=== PATIENT | female | born 1930 | race Caucasian/White ===

== ENCOUNTER 2017-03-16 13:23 | Inpatient (IN) | payer MEDICARE, OTHER ==
--- NOTE | ~2017-03-16 | IDS ---
Interim Discharge Summary [facility] [address] [place]. [address] NAME: NICOLAS TRUJILLO : 31 STATUS : ADM IN [facility]#: [id number] AGE: 87 ADM/REG DATE : 03/16/17 MR#: [id number] REPORT SERV DATE: 03/19/17 DICTATED BY: JIA KATZ DATE: 03/19/17 REPORT STATUS : Draft TRANSCRIBED BY: MODL DATE: 03/19/17 ADMISSION DATE: 03/16/2017 DISCHARGE DATE: CURRENT HOSPITAL DIAGNOSES: 1. Acute renal failure. 2. History of hypertension, currently off her antihypertensives. 3. History of recent ejq-YZ-blaupnavu myocardial infarction with stent placement. Currently on antiplatelet therapy. 4. History of diet-controlled diabetes. CONSULTATIONS: Nephrology. PROCEDURES: 1. Echocardiogram, currently pending. 2. Renal ultrasound showing a 5 mm stone in the lower pole of the left kidney, mild cortical thinning consistent with aging, left extrarenal pelvis dilated without caliectasis. CURRENT PHYSICAL FINDINGS AND HISTORY OF PRESENT ILLNESS: Please see the initial dictated H and P by myself. In brief, the patient is an 87-year-old female, who was referred by Dr. Oh for increasing creatinine post cath approximately two months ago for cardiac stent. LABORATORY DATA: Lab work showed initial creatinine of 5.77 on 03/16/2017. Subsequently, per day 5.19, 3.55, and 2.74, no associated hyperkalemia. A1c was 5.9, no leukocytosis, mild anemia, approximately 10 and 30 on her hemoglobin and hematocrit. Urinalysis was positive. The patient has been asymptomatic. Culture showed probable contamination. HOSPITAL COURSE: Vital signs at the time of admission; BP was 116/50. The patient had intermittent high numbers in the 160s, but overall it has been averaging approximately to 140s, systolic, no fever during this hospital stay. The patient was admitted. Her ZACHARY inhibitor and diuretic were held. IV fluids were given. Obstruction was ruled out. Nephrology was consulted, given the elevation in her numbers in her creatinine. Urinalysis with culture was checked, not treated as the patient is currently asymptomatic. She was having no difficulty with volume overload. She was having no cardiac issues or chest pain. CURRENT PLAN AND DISPOSITION: The patient is off IV fluids. Awaiting echocardiogram. Creatinine continues to improve. Mild hypertension, off her antihypertensives, observing. We will repeat UA to rule out any issues with the UTI. Expect disposition to home soon. TLF/JOSE Interim Discharge Summary [place] [address] [place]. [address] NAME: NICOLAS TRUJILLO : 31 STATUS : ADM IN PAT#: [id number] AGE: 87 ADM/REG DATE : 03/16/17 MR#: [id number] REPORT SERV DATE: 03/19/17 DICTATED BY: JIA KATZ DATE: 03/19/17 REPORT STATUS : Draft TRANSCRIBED BY: JOSE DATE: 03/19/17 Jia Katz M.D. / [id number] CC: Alton Pathak M.D.
--- NOTE | ~2017-03-16 | HP ---
History And Physical [place] [id number] [facility] [place]. [address] NAME: NICOLAS TRUJILLO : 31 STATUS : ADM IN PAT#: [id number] AGE: 87 ADM/REG DATE : 03/16/17 MR#: [id number] REPORT SERV DATE: 03/16/17 DICTATED BY: JIA KATZ DATE: 03/16/17 REPORT STATUS : Draft TRANSCRIBED BY: MODL DATE: 03/16/17 DATE OF ADMISSION: 03/16/2017 CHIEF COMPLAINT: Increasing renal insufficiency. HISTORY OF PRESENT ILLNESS: The patient is an 87-year-old female. She has a past medical history significant for hypertension, dependent edema, diabetes, and glaucoma. She presents today as a direct admission from Dr. Oh's office. The patient had a recent hospitalization about two months ago at [facility] for a non-ST [place]. She is uncertain how high her troponin got or whether she was diagnosed with any significant heart failure. She was treated with a stent placement, and by her description, she states that she underwent cardiac catheterization on Sunday and then stent placement the following day. [facility] elected to hydrate her in between the procedures. She seems to have perhaps some mild underlying renal insufficiency. Dr. Oh's records sent from her with creatinines going back to 04/2015 seemed to indicate a 1.2 to 1.3 creatinine. Prior to all of this, she had been on Bumex and an ZACHARY inhibitor. She does not believe [facility] changed any of those doses. When she saw Dr. Oh for a post-hospital followup, her creatinine was slightly higher. He advised her to decrease the ZACHARY inhibitor and decrease the diuretic. I believe she also had a Mobic prescription, which he recommended she discontinue. There may have been another creatinine check after that appointment, but when she went back most recently for a followup creatinine, it had jumped to 5.2. It appears before 01/27/2017, she was 1.5. Subsequent numbers were 3.7, 2.9, and then 5.2. The patient states that she noticed some concentrated urine and some decreased output, worse over the past couple of days. She states her urine was "slow," but she was not having trouble passing it. She did not really feel like her edema had changed. She had some slight shortness of breath after the heart attack. She has not really felt like that has worsened, perhaps with some kind of cardiac arrhythmia that might have even improved some. She is admitted today for further delineation of the etiology of her renal failure. PAST MEDICAL HISTORY: As covered above. PAST SURGICAL HISTORY: She has had some orthopedic surgeries. She had the heart catheterization and the recent stent placement. CURRENT MEDICATIONS: Allopurinol 200 a day, aspirin 81, Lipitor 80, Lumigan eyedrops, Alphagan eyedrops, Bumex 1 mg daily, Caltrate 600 daily, D3 10,000, Restasis ophthalmic, Atrovent nasal, lisinopril 20, Mag oxide 400, potassium 10, Brilinta 90 b.i.d., over-the- counter vitamins. ALLERGIES: MORPHINE, CODEINE, PENICILLIN, AND SULFA. FAMILY HISTORY: Both parents ; father with cancer and mother with a CVA. SOCIAL HISTORY: Remote smoker. No EtOH. REVIEW OF SYSTEMS: History And Physical [address] [address] NAME: NICOLAS TRUJILLO : 31 STATUS : ADM IN [facility]#: [id number] AGE: 87 ADM/REG DATE : 03/16/17 MR#: [id number] REPORT SERV DATE: 03/16/17 DICTATED BY: JIA KATZ DATE: 03/16/17 REPORT STATUS : Draft TRANSCRIBED BY: JOSE DATE: 03/16/17 HEENT: No complaints. CARDIOVASCULAR: She has not had chest pain or palpitations since her cardiac intervention. PULMONARY: Some slight exertional shortness of breath. No cough, hemoptysis, or purulent sputum. GASTROINTESTINAL: No nausea or vomiting. GENITOURINARY: As covered in HPI. NEUROMUSCULOSKELETAL: Chronic orthopedic problems. Otherwise, 10-point review of systems is negative. PHYSICAL EXAMINATION: VITAL SIGNS: Currently pending. GENERAL: She is awake, alert, and oriented. HEENT: Normocephalic, atraumatic. Sclerae are nonicteric. NECK: Supple. HEART: Regular rate and rhythm. LUNGS: Show some mild rales in the bases. ABDOMEN: Nontender, nondistended. EXTREMITIES: Trace to 1+ edema. LABORATORY DATA: As forwarded, dated 03/15/2017: Sodium 142, potassium 4.7, chloride 105, CO2 of 20, BUN and creatinine were 70 and 5.2 with a glucose of 112. ASSESSMENT: Acute renal failure. Etiologies to be recent heart catheterization; medications including diuretic, angiotensin-converting enzyme inhibitor, and anti-inflammatory; progressive underlying kidney disease, all possibilities. PLAN: 1. The patient has been admitted. 2. Gentle rehydration, as I do not know her underlying EF. 3. We will hold her ZACHARY and diuretics. 4. Nephrology consult. 5. Records request from [facility]. CHANO/JOSE Jia Katz M.D. / [id number] CC: Tunde Oh M.D.
--- NOTE | ~2017-03-16 | CN ---
Consultation Report [facility] [address] [place]. [address] NAME: NICOLAS PHILLIPS : 31 STATUS : ADM IN PAT#: [id number] AGE: 87 ADM/REG DATE : 03/16/17 MR#: [id number] REPORT SERV DATE: 03/16/17 DICTATED BY: DATE: REPORT STATUS : Draft TRANSCRIBED BY: MODL DATE: 03/16/17 DATE OF CONSULTATION: REASON FOR CONSULTATION: Acute kidney injury. HISTORY OF PRESENT ILLNESS: Ms. Phillips is an 87-year-old white female, who denies any history of kidney disease in the past. However, Dr. Oh has sent some records from his office and it looks as though she did have some mild CKD with baseline creatinine 1.3. She does have type 2 diabetes. It has been diet controlled for over 10 years, but no known retinopathy. Most recently, in 01/2016, she had an SD and heart catheterization with stenting at [facility]. She went for her followup appointment with Dr. Oh and was found to have an elevated creatinine. He stopped her Mobic and decreased her lisinopril. On recheck, she has had it rechecked twice in the office, it was 3.7, then 2.9, and yesterday at the office, it was up to 5.2. She does have lower extremity edema, chronic, no change. She has noted that her blood pressure has been in the 90s, which is different over the last month or so. Over the last two to three days, she has had a decrease in urination without burning or blood. She is experiencing no shortness of breath, chest pain, tightness, or pressure. No unusual rashes or skin lesions. No recent antibiotics. The only new medications after her SD were aspirin, Brilinta, and statin therapy. PAST MEDICAL HISTORY: Diabetes, SD, coronary artery disease, stent, hyperlipidemia, hypertension, reflux, type 2 diabetes diet controlled, osteoarthritis, glaucoma, total knee replacement, and cholecystectomy. ALLERGIES: MORPHINE, PENICILLIN, CODEINE, AND SULFA. MEDICATIONS AT HOME: Allopurinol, aspirin, Lipitor, Bumex, Caltrate, D3, Atrovent, lisinopril, magnesium oxide, potassium, Brilinta. FAMILY MEDICAL HISTORY: Negative for any kidney disease. SOCIAL HISTORY: She lives with her daughter. Distant history of tobacco use, quit in 80s. No alcohol or illicit drug use. REVIEW OF SYSTEMS: A 12-point review of systems obtained, negative with the exception of that in HPI. PHYSICAL EXAMINATION: VITAL SIGNS: Blood pressure 111/54, temp 97.9, heart rate 67, respiratory rate 16, O2 saturation 96% on room air. GENERAL: This is a pleasant, cooperative white female. She is awake, alert, and oriented x3, in no acute distress. Answers questions appropriately. HEENT: Normocephalic and atraumatic. Conjunctivae clear. Sclerae are anicteric. Oral mucosa is dry. Consultation Report [facility] [address] [facility] [place]. [address] NAME: NICOLAS PHILLIPS : 31 STATUS : ADM IN [facility]#: [id number] AGE: 87 ADM/REG DATE : 03/16/17 MR#: [id number] REPORT SERV DATE: 03/16/17 DICTATED BY: DATE: REPORT STATUS : Draft TRANSCRIBED BY: MODSesar DATE: 03/16/17 NECK: Supple. Carotids are brisk. Neck veins flat. No lymphadenopathy. LUNGS: Respirations even and unlabored. Breath sounds clear to auscultation. HEART: Rate is regular. I did not hear any murmur, rub, or gallop. ABDOMEN: Soft and nontender. I did not hear any bruits. No masses. No hepatosplenomegaly. Bowel sounds active. No CVA tenderness. BACK: Within normal limits. EXTREMITIES: Without any significant edema. SKIN: Warm, dry, and intact. No unusual rashes or skin lesions. NEURO: No focal deficits. Mood and affect, pleasant and appropriate. LABORATORY DATA: None available from [facility]; however, labs from Dr. Oh's office yesterday, calcium was 9.2, creatinine 5.2, BUN of 70. Sodium 142, potassium 4.7. IMPRESSION: 1. Acute kidney injury. 2. Chronic kidney disease stage 2. 3. Coronary artery disease, status post recent myocardial infarction with stent. 4. Hypertension. 5. Type 2 diabetes. 6. Osteoarthritis. 7. Hyperlipidemia. 8. Nausea. PLAN: She already has renal ultrasound ordered. We will give some gentle hydration as I do not know what her EF is. Follow I's and O's and labs. Check CPK. Check urine studies. Try and obtain records from [facility]. Hold lisinopril. Further orders and recommendations pending the above results. BRIE/MODL NITHYA Cobb / [id number] CC: Alton Pathak M.D.
--- NOTE | ~2017-03-16 | DS ---
Discharge Summary [place] [id number] [facility] [place]. [address] NAME: NICOLAS PHILLIPS : 31 STATUS : DIS IN PAT#: [id number] AGE: 87 ADM/REG DATE : 03/16/17 MR#: [id number] REPORT SERV DATE: 03/22/17 DICTATED BY: SHANNAN JAY DATE: 03/21/17 REPORT STATUS : Draft TRANSCRIBED BY: MODL DATE: 03/21/17 ADMISSION DATE: 03/16/2017 DISCHARGE DATE: 03/21/2017 DISCHARGE DIAGNOSES: 1. Acute kidney injury secondary to acute tubular necrosis. 2. Diabetes type 2. 3. Metabolic acidosis. 4. Coronary artery disease. 5. Hypertension. 6. History of NSTEMI, on antiplatelet therapy. CONSULTATIONS: Nephrology. PROCEDURES: Echocardiogram with EF of 58% mild diastolic dysfunction and right ventricular systolic function, intact aortic sclerosis with mild stenosis. Discussed with the patient. Renal ultrasound showing 5 mm stone left lower pole, mild cortical thickening with aging, left extrarenal pelvis dilated without caliectasis. DISCHARGE MEDICATIONS: 1. Aspirin 81 mg one tab p.o. daily. 2. Atorvastatin reduced to half dose at bedtime 40 mg one tab p.o. daily. 3. Alphagan 1 drop ophthalmic daily. 4. Coreg 3.125 mg one tab p.o. b.i.d. 5. Lumigan droplet tab at bedtime home dose. 6. Brilinta 90 mg one tab p.o. b.i.d. 7. Hydralazine 25 mg one tab p.o. b.i.d. 8. Vitamin D 3 one cap p.o. weekly on Mondays. 9. Zestril, allopurinol, Bumex, and potassium supplements all held. 10.Magnesium oxide 400 mg one tab p.o. daily. 11.Icaps, Caltrate carbonate 600 mg one tab p.o. daily. 12.Atrovent spray nasally as needed for nasal drip. 13.Restasis droplet p.r.n. dry eyes. 14.Sodium bicarb 200 mg p.o. daily. DISCHARGE DISPOSITION: Home with family. FOLLOWUP: With PCP for BMP, CBC, blood pressure approximately 7 days and follow up with Renal in one week. Follow up 1-2 weeks for labs as ordered. HOSPITAL COURSE: Please see H and P for complete details of HPI and interim summary by Dr. Erick Odom. INTERIM COURSE: Briefly, Ms. Phillips is a very pleasant 87-year-old, female, who presents after having elevated creatinine post catheterization 2 months ago for cardiac stent. Creatinine was up to 5.77. On admission, did have improvement without significant Discharge Summary [address] [address] NAME: NICOLAS PHILLIPS : 31 STATUS : DIS IN PAT#: [id number] AGE: 87 ADM/REG DATE : 03/16/17 MR#: [id number] REPORT SERV DATE: 03/22/17 DICTATED BY: SHANNAN JAY DATE: 03/21/17 REPORT STATUS : Draft TRANSCRIBED BY: JOSE DATE: 03/21/17 hyperkalemia. A1c was 5.9. The patient did have mild anemia. The patient was also having adjustments with her blood pressure including increase in her ZACHARY inhibitor. The patient did have nephrotoxins held with ZACHARY inhibitor, diuretic. No obstruction was appreciated. The patient clinically was asymptomatic, feeling well, not volume overloaded. The patient did have repeat UA which only showed trace leukocyte esterase and WBC of 6. No bacteria and no acute leukocytosis. On day of discharge, creatinine had actually improved to 2.16, although the patient was mildly acidotic. This was discussed with Renal Team who believed this was likely secondary to medical renal disease. Replacement was started with sodium bicarb and to be followed up in 1 week. The patient felt clinically safe and improved to return home, was continued on home medications minus ZACHARY inhibitor and diuretic, but was continued on aspirin, Brilinta, decreased dose of atorvastatin, was started on Coreg, low dose hydralazine, both of which were tolerated while inpatient as the patient did have mild increases in blood pressure while inpatient and blood pressure seemed to be more optimized while on these medications and can continued to be titrated in the outpatient setting. The patient understood and had appropriate questioning throughout hospital course and understands importance for close followup. Thank you, Dr. Oh, for allowing us to assist in the care of this wonderful patient. DICTATED BY: MD YAQUELIN Lu/JOSE Shannan Jay MD / [id number] CC: MD Tunde Lu M.D.
[~2017-03-16 13:23] MED LIST: ALPHAGAN P0.1 % OPH; AMB10 PO; BETIMOL0.25 % OPH; CALTRA600D PO; DARVOCET-N50 MG PO; EYE CAPS VITAMIN PO; FOSAMAX70 MG PO; GLUCPH PO; HAIR,SKIN,NAILS; I-CAP VITAMIN PO; KLOR-CON 1010 MEQ PO; LUMIGAN OPH; LUMIGAN2.5 ML OPH; MAGOX4 PO; MOBIC15 MG PO; NORCO1 TA1 PO; NORV10 PO; PRILO PO; PRIN20 PO; PRINZIDE1 TA1 PO; RANITIDINE300 MG PO; RESTASIS OPH; TEARS PLUS OP; ULTRAM50 PO; ZANAFLEX 4 MG TA4 MG PO; ZESTORETIC PO; ZOCOR40 PO; [UNRECOGNIZED DRUG - OTHER] PO
[2017-03-16] MEDS ORDERED: Z100 PO (14:13)
[2017-03-16] MEDS ORDERED: ZESTRIL20 MG PO (14:13)
[2017-03-16] MEDS ORDERED: BUM1 PO (14:14)
[2017-03-16] MEDS ORDERED: MICRO-K10 MEQ PO (14:15)
[2017-03-16] MEDS ORDERED: MAXIMUM D3 PO (14:20)
[2017-03-16] MEDS ORDERED: HALF81 PO (14:21)
[2017-03-16] MEDS ORDERED: MAGOX4 PO (14:21)
[2017-03-16] MEDS ORDERED: ICAPS AREDS SO1 EACH PO ×2 (14:29→14:30)
[2017-03-16] MEDS ORDERED: BRILINTA90 MG PO (14:29)
[2017-03-16] MEDS ORDERED: LIPITOR80 MG PO (14:29)
[2017-03-16] MEDS ORDERED: CALTRAT600 PO (14:31)
[2017-03-16] MEDS ORDERED: [UNRECOGNIZED DRUG - OTHER] PO (14:32)
[2017-03-16] MEDS ORDERED: ATRONASAL3 NAS (14:34)
[2017-03-16] MEDS ORDERED: ALPHAGAN P0.1 % OPH (14:35)
[2017-03-16] MEDS ORDERED: RESTASIS OPH (14:36)
[2017-03-16] MEDS ORDERED: LUMIGAN2.5 ML OPH (14:37)
[2017-03-16 17:09] LABS: A/G RATIO 0.9 (0.7-1.9); ALBUMIN 3.4 G/DL (3.5-5.0); CHLORIDE, SERUM 107 MMOL/L (96-112); FREE T4 1.12 NG/DL (0.76-1.46); GLOBULIN 3.9 G/DL (2.5-4.1); SGOT(AST) 24 U/L (5-40); SGPT(ALT) 23 U/L (5-65); SODIUM, SERUM 141 MMOL/L (135-148); TOTAL BILIRUBIN 0.3 MG/DL (0-1.2); TOTAL PROTEIN 7.3 G/DL (6.0-8.5)
[2017-03-16 17:11] LABS: ALKALINE PHOSPHATASE 106 U/L (45-117); BUN (BLOOD UREA NITROGEN) 77 MG/DL (6-23); CALCIUM, SERUM 9.2 MG/DL (8.5-10.4); CO2 (CARBON DIOXIDE) 23 MMOL/L (24-34); CREATININE 5.77 MG/DL (0.55-1.02); GFR AFRICAN AMERICAN 7 ML/MIN (>=60); GFR NON AFRICAN AMERICAN 6 ML/MIN (>=60); GLUCOSE, SERUM 88 MG/DL (60-99); PHOSPHORUS, SERUM 8.1 MG/DL (2.5-4.5); POTASSIUM, SERUM 4.4 MMOL/L (3.5-5.3)
[2017-03-16 17:23] LABS: CPK 65 U/L (0-200)
[2017-03-17 06:07] LABS: ASCORBIC ACID (UR NOT ORDER) NEG (NEG); BILIRUBIN, URINE NEGATIVE (NEG); KETONE, URINE NEGATIVE (NEG); LEUKOCYTE ESTERASE(NOT OR LARGE (NEG); WBC (NOT ORDERED) (RFLEX) 35 (0-5)
[2017-03-17 06:43] LABS: BASOPHILS 0.4 %; BASOPHILS ABSOLUTE 0.04 10/3/uL (0.0-0.16); EOSINOPHILS 8.9 %; EOSINOPHILS ABSOLUTE 0.91 10/3/uL (0.0-0.53); HEMOGLOBIN 9.8 g/dL (12.0-16.0); IMMATURE GRANULOCYTES 0.3 %; IMMATURE GRANULOCYTES ABSOLUTE 0.03 10/3/uL (0.0-0.11); LYMPHOCYTES 35.9 %; LYMPHOCYTES ABSOLUTE 3.66 10/3/uL (0.67-4.30); MANUAL DIFF NO %; MEAN CORPUS HGB CONC 32.7 g/dL (32.0-36.0); MEAN CORPUSCULAR HEMOGLOB 33.2 pg (26.0-34.0); MEAN CORPUSCULAR VOLUME 101.7 fL (80-100); MEAN PLATELET VOLUME 11.3 fL (9.2-13.0); MONOCYTES 8.2 %; MONOCYTES ABSOLUTE 0.84 10/3/uL (0.21-1.20); NEUTROPHILS 46.3 %; NEUTROPHILS ABSOLUTE 4.72 10/3/uL (2.02-8.40); PLATELET COUNT 233 10/3/uL (150-400); RBC DISTRIBUTION WIDTH 15.4 % (12.0-16.0); RED CELL COUNT 2.95 10/6/uL (4.0-5.6); WHITE BLOOD CELLS 10.2 10/3/uL (4.5-10.5)
[2017-03-17 06:56] LABS: ALBUMIN 2.8 G/DL (3.5-5.0); BUN (BLOOD UREA NITROGEN) 75 MG/DL (6-23); CALCIUM, SERUM 8.6 MG/DL (8.5-10.4); CHLORIDE, SERUM 109 MMOL/L (96-112); CO2 (CARBON DIOXIDE) 22 MMOL/L (24-34); SODIUM, SERUM 139 MMOL/L (135-148)
[2017-03-17 06:58] LABS: CREATININE 5.19 MG/DL (0.55-1.02); GFR AFRICAN AMERICAN 8 ML/MIN (>=60); GFR NON AFRICAN AMERICAN 7 ML/MIN (>=60); GLUCOSE, SERUM 119 MG/DL (60-99)
[2017-03-18 06:48] LABS: ALBUMIN 2.6 G/DL (3.5-5.0); CALCIUM, SERUM 8.5 MG/DL (8.5-10.4); CHLORIDE, SERUM 115 MMOL/L (96-112); CO2 (CARBON DIOXIDE) 19 MMOL/L (24-34); GLUCOSE, SERUM 102 MG/DL (60-99); POTASSIUM, SERUM 4.2 MMOL/L (3.5-5.3); SODIUM, SERUM 145 MMOL/L (135-148)
[2017-03-18 06:50] LABS: BUN (BLOOD UREA NITROGEN) 63 MG/DL (6-23); CREATININE 3.55 MG/DL (0.55-1.02); GFR AFRICAN AMERICAN 13 ML/MIN (>=60); GFR NON AFRICAN AMERICAN 11 ML/MIN (>=60); PHOSPHORUS, SERUM 4.8 MG/DL (2.5-4.5)
[2017-03-19 06:13] LABS: BASOPHILS 0.6 %; BASOPHILS ABSOLUTE 0.05 10/3/uL (0.0-0.16); EOSINOPHILS 5.8 %; EOSINOPHILS ABSOLUTE 0.49 10/3/uL (0.0-0.53); HEMATOCRIT 31.6 % (36.0-48.0); HEMOGLOBIN 10.4 g/dL (12.0-16.0); IMMATURE GRANULOCYTES 0.4 %; IMMATURE GRANULOCYTES ABSOLUTE 0.03 10/3/uL (0.0-0.11); LYMPHOCYTES 40.3 %; LYMPHOCYTES ABSOLUTE 3.38 10/3/uL (0.67-4.30); MEAN CORPUS HGB CONC 32.9 g/dL (32.0-36.0); MEAN CORPUSCULAR HEMOGLOB 33.4 pg (26.0-34.0); MEAN CORPUSCULAR VOLUME 101.6 fL (80-100); MEAN PLATELET VOLUME 10.4 fL (9.2-13.0); MONOCYTES 8.3 %; NEUTROPHILS 44.6 %; NEUTROPHILS ABSOLUTE 3.74 10/3/uL (2.02-8.40); PLATELET COUNT 210 10/3/uL (150-400); RBC DISTRIBUTION WIDTH 15.4 % (12.0-16.0); RED CELL COUNT 3.11 10/6/uL (4.0-5.6); WHITE BLOOD CELLS 8.4 10/3/uL (4.5-10.5)
[2017-03-19 06:14] LABS: MANUAL DIFF NO %
[2017-03-19 06:27] LABS: ALBUMIN 2.7 G/DL (3.5-5.0); BUN (BLOOD UREA NITROGEN) 52 MG/DL (6-23); CALCIUM, SERUM 8.9 MG/DL (8.5-10.4); CHLORIDE, SERUM 119 MMOL/L (96-112); CO2 (CARBON DIOXIDE) 18 MMOL/L (24-34); CREATININE 2.74 MG/DL (0.55-1.02); GFR AFRICAN AMERICAN 17 ML/MIN (>=60); GFR NON AFRICAN AMERICAN 15 ML/MIN (>=60); GLUCOSE, SERUM 94 MG/DL (60-99); PHOSPHORUS, SERUM 4.2 MG/DL (2.5-4.5); POTASSIUM, SERUM 4.3 MMOL/L (3.5-5.3); SODIUM, SERUM 148 MMOL/L (135-148)
[2017-03-19 17:22] LABS: ASCORBIC ACID (UR NOT ORDER) NEG (NEG); BILIRUBIN, URINE NEGATIVE (NEG); KETONE, URINE TRACE MG/DL (NEG); LEUKOCYTE ESTERASE(NOT OR TRACE (NEG); WBC (NOT ORDERED) (RFLEX) 6 (0-5)
[2017-03-20 05:20] LABS: BASOPHILS 0.2 %; BASOPHILS ABSOLUTE 0.02 10/3/uL (0.0-0.16); EOSINOPHILS 5.4 %; EOSINOPHILS ABSOLUTE 0.45 10/3/uL (0.0-0.53); HEMATOCRIT 30.6 % (36.0-48.0); HEMOGLOBIN 10.2 g/dL (12.0-16.0); IMMATURE GRANULOCYTES 0.4 %; IMMATURE GRANULOCYTES ABSOLUTE 0.03 10/3/uL (0.0-0.11); LYMPHOCYTES 39.6 %; MANUAL DIFF NO %; MEAN CORPUS HGB CONC 33.3 g/dL (32.0-36.0); MEAN CORPUSCULAR HEMOGLOB 33.7 pg (26.0-34.0); MEAN PLATELET VOLUME 10.9 fL (9.2-13.0); MONOCYTES 9.6 %; NEUTROPHILS 44.8 %; NEUTROPHILS ABSOLUTE 3.73 10/3/uL (2.02-8.40); PLATELET COUNT 226 10/3/uL (150-400); RBC DISTRIBUTION WIDTH 15.2 % (12.0-16.0); RED CELL COUNT 3.03 10/6/uL (4.0-5.6); WHITE BLOOD CELLS 8.3 10/3/uL (4.5-10.5)
[2017-03-20 05:34] LABS: ALBUMIN 2.8 G/DL (3.5-5.0); CHLORIDE, SERUM 116 MMOL/L (96-112); CO2 (CARBON DIOXIDE) 21 MMOL/L (24-34); GFR AFRICAN AMERICAN 20 ML/MIN (>=60); GFR NON AFRICAN AMERICAN 18 ML/MIN (>=60); PHOSPHORUS, SERUM 3.6 MG/DL (2.5-4.5); POTASSIUM, SERUM 4.1 MMOL/L (3.5-5.3); SODIUM, SERUM 142 MMOL/L (135-148)
[2017-03-20 05:35] LABS: BUN (BLOOD UREA NITROGEN) 42 MG/DL (6-23); GLUCOSE, SERUM 120 MG/DL (60-99)
[2017-03-21 05:20] LABS: ALBUMIN 2.8 G/DL (3.5-5.0); CALCIUM, SERUM 8.7 MG/DL (8.5-10.4); CHLORIDE, SERUM 118 MMOL/L (96-112); CO2 (CARBON DIOXIDE) 17 MMOL/L (24-34); CREATININE 2.16 MG/DL (0.55-1.02); GFR AFRICAN AMERICAN 23 ML/MIN (>=60); GFR NON AFRICAN AMERICAN 20 ML/MIN (>=60); GLUCOSE, SERUM 112 MG/DL (60-99); PHOSPHORUS, SERUM 3.5 MG/DL (2.5-4.5); POTASSIUM, SERUM 4.3 MMOL/L (3.5-5.3); SODIUM, SERUM 144 MMOL/L (135-148)
[2017-03-21 05:21] LABS: BUN (BLOOD UREA NITROGEN) 38 MG/DL (6-23)
[2017-03-21] MEDS ORDERED: COREG3 PO (11:41)
[2017-03-21] MEDS ORDERED: SODBICAR10 PO (11:41)
[2017-03-21] MEDS ORDERED: APRES25 PO (11:42)
== END 2017-03-21 16:34 | disposition home or self-care (01) | DRG 683 ==
LOC: 2SO 13:23
PROVIDERS: Internal Medicine; Nurse Practitioner; Registered Nurse
DX: N17.0 Acute kidney failure with tubular necrosis (principal); E87.2 Acidosis; E11.22 Type 2 diabetes mellitus with diabetic chronic kidney disease; I50.32 Chronic diastolic (congestive) heart failure; I13.0 Hypertensive heart and chronic kidney disease with heart failure and stage 1 through stage 4 chronic kidney disease, or unspecified chronic kidney disease; D64.9 Anemia, unspecified; N20.0 Calculus of kidney; E78.5 Hyperlipidemia, unspecified; H40.9 Unspecified glaucoma; M19.90 Unspecified osteoarthritis, unspecified site; K21.9 Gastro-esophageal reflux disease without esophagitis; N18.9 Chronic kidney disease, unspecified; I25.10 Atherosclerotic heart disease of native coronary artery without angina pectoris; Z96.659 Presence of unspecified artificial knee joint; I35.0 Nonrheumatic aortic (valve) stenosis; Z95.5 Presence of coronary angioplasty implant and graft; Z82.3 Family history of stroke; Z80.9 Family history of malignant neoplasm, unspecified; I25.2 Old myocardial infarction; Z88.0 Allergy status to penicillin; Z88.2 Allergy status to sulfonamides; Z98.890 Other specified postprocedural states; Z88.5 Allergy status to narcotic agent
CPT/HCPCS: 71010; 76775; 80053; 80069; 81001; 82550; 82570; 83036; 83735; 83935; 84100; 84156; 84300; 84439; 84443; 85025; 87086; 93306; A9270-GY; J3475